=== PATIENT | male | born 1990 | race Caucasian/White ===

== ENCOUNTER 2021-07-24 17:02 | Emergency (ER) | payer SELFPAY ==
[~2021-07-24] VITALS: Ht 180.3 cm; Wt 132.0 kg
[2021-07-24 17:02] VITALS: BP 136/78
[2021-07-24] MEDS ORDERED: KETOROLAC 60 MG/2 ML VIAL. IM ONE (17:30)
[2021-07-24] MEDS ORDERED: ORPHENADRINE CITRATE 60 MG/2 ML VIAL. IM ONE (17:30)
--- NOTE | 2021-07-24 17:49 | RAD ---
XR LUMBAR SPINE 2-3V History: Reason: low back pain / Spl. Instructions: / History: Technique: 3 views lumbar spine. Comparison: None. Findings: Normal vertebral body height and alignment. No acute fracture. Mild degenerative disc changes most pr ominent L4-5 and L5-S1. Impression: 1. No acute osseous abnormality. Electronically signed by: Tejas Leal DO (07/24/2021 5:47 PM) [facility]
[2021-07-24] MEDS ORDERED: CYCL-331 PO (18:03)
--- NOTE | 2021-07-24 18:04 | PHYS DOC ---
Past History Past Medical History: No Pertinent History (JILLIAN KILPATRICK APRN) Past Surgical History: No Surgical History (JILLIAN KILPATRICK APRN) Alcohol Use: None Drug Use: None (JILLIAN KILPATRICK APRN) General Adult EDM: Chief Complaint: BACK PAIN OR INJURY HPI: HPI: Patient is a 31-year-old male who presents to the ER for low back pain. 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 It does not radiate. At rest is 2 out of 10, with movement 7 out of 10. No treatment prior to arrival. Patient denies any radiation of pain, saddle anesthesias, numbness or tingling in his extremities or loss of bowel or bladder. (JILLIAN KILPATRICK APRN) Review of Systems: Review of Systems: 14 body systems of the review of systems have been reviewed. See HPI for pertinent positive and negative responses, otherwise all other systems are negative, nonpertinent or noncontributory (JILLIAN KILPATRICK APRN) Current Medications: Current Meds: Current Medications Medications (Trade) Dose Ordered Sig/Candelario Start Time Stop Time Status Last Admin Dose Admin Ketorolac Tromethamine (Toradol Im) 60 mg 1X ONCE 07/24/21 17:30 07/24/21 17:31 DC 07/24/21 17:50 60 MG Orphenadrine Citrate (Norflex) 60 mg 1X ONCE 07/24/21 17:30 07/24/21 17:31 DC 07/24/21 17:50 60 MG (JILLIAN KILPATRICK APRN) Allergies: Allergies: Allergies Coded Allergies Type Severity Reaction Last Updated Verified No Known Drug Allergies 10/26/14 No (JILLIAN KILPATRICK APRN) Physical Exam: PE: Constitutional: Well developed, well nourished, no acute distress, non-toxic appearance. [] HENT: Normocephalic, atraumatic, bilateral external ears normal, oropharynx moist, no oral exudates, nose normal. [] Eyes: PERRLA, EOMI, conjunctiva normal, no discharge. [] Neck: Normal range of motion, no bony cervical spinal tenderness, supple, no stridor. [] Cardiovascular:Heart rate regular rhythm, no murmur [] Lungs & Thorax: Bilateral breath sounds clear to auscultation [] Abdomen: Bowel sounds normal, soft, no tenderness, no masses, no pulsatile masses. [] Skin: Warm, dry, no erythema, no rash. [] Back: No bony spinal tenderness, no CVA tenderness. [] Extremities: No tenderness, no cyanosis, no clubbing, ROM intact, no edema. [] Neurologic: Alert and oriented X 3, normal motor function, normal sensory fu nction, no focal deficits noted. [] Psychologic: Affect normal, judgement normal, mood normal. [] (JILLIAN KILPATRICK APRN) EKG: EKG: [] (JILLIAN KILPATRICK APRN) Radiology/Procedures: Radiology/Procedures: [] (JILLIAN KILPATRICK APRN) Heart Score: C/O Chest Pain: No Risk Factors: Risk Factors: DM, Current or recent (<one month) smoker, HTN, HLP, family history of CAD, obesity. Risk Scores: Score 0 - 3: 2.5% MACE over next 6 weeks - Discharge Home Score 4 - 6: 20.3% MACE over next 6 weeks - Admit for Clinical Observation Score 7 - 10: 72.7% MACE over next 6 weeks - Early Invasive Strategies (JILLIAN KILPATRICK APRN) Course & Med Decision Making: Course & Med Decision Making Pertinent Labs and Imaging studies reviewed. (See chart for details) []Patient is a 31-year-old male who presents to the ER for low back pain. 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 It does not radiate. At rest is 2 out of 10, with movement 7 out of 10. No treatment prior to arrival. Patient denies any radiation of pain, saddle anesthesias, numbness or tingling in his extremities or loss of bowel or bladder. X-ray negative for any acute findings. Patient treated in the ER with anti-inflammatory medications and muscle relaxer. Patient will be discharged home with anti- inflammatory medications and muscle relaxer. I discussed with patient all findings and diagnostic testing as well as the need to follow-up with PCP for further evaluation and treatment or return to the ER if any new or worsening symptoms. Strict return precautions were also discussed at length. Patient v oiced understanding and agreement with the plan. Patient is hemodynamically stable at the time of disposition. (JILLIAN KILPATRICK APRN) Course & Med Decision Making I was the Attending physician on the above date of service of this patient. This patient was evaluated, examined, treated, and dispositioned from the emergency department by the mid-level practitioner. Although I was working at the time , no assistance was requested. Electronically signed, Sam Alfonso DO (SAM ALFONSO DO) [place] Disclaimer: [place] Disclaimer: This electronic medical record was generated, in whole or in part, using a voice recognition dictation system. (JILLIAN KILPATRICK APRN) Departure Departure: Impression: Primary Impression: Back pain Qualified Codes: M54.5 - Low back pain Disposition: HOME / SELF CARE / HOMELESS Condition: GOOD Referrals: PCP,NO (PCP) Patient Instructions: Back Pain, Adult Additional Instructions: You were seen in the ER for low back pain. Your x-ray was negative for any acute findings. It is likely that you are experiencing a muscle spasm. You are treated with anti-inflammatory medications and muscle relaxer in the ER. Please continue to take ibuprofen or naproxen at home. You are being discharged home with a muscle relaxer. Please take this as directed. This medication may cause drowsiness so do not take when you need to be alert and do not take with alcohol. Follow-up with your primary care provider tomorrow regarding your ER visit. If you develop worsening of your back pain, inability to bear weight or ambulate, numbness or tingling in your extremities, loss of bowel or bladder or numbness or tingling in your groin please return to the ER immediately. EMERGENCY DEPARTMENT GENERAL DISCHARGE INSTRUCTIONS Thank you for coming to [facility] (ED) today and trusting us with you care. We trust that you had a positivie experience in our Emergency Department. If you wish to speak to the department management, you may call the director at [phone]. YOUR FOLLOW UP INSTRUCTIONS ARE FOLLOWS: 1. Do you have a private Doctor? If you do not have a private doctor, please ask for a resource list of physicians or clinics that may be able to assist you with follow up care. 2. The Emergency Physician has interpreted your x-rays. The X-Ray specialist will also review them. If there is a change in the findings, you will be notified in 48 hours when at all possible. 3. A lab test or culture has been done, your results will be reviewed and you will be notified if you need a change in treatment. ADDITIONAL INSTRUCTIONS AND INFORMATION: 1. Your care today has been supervised by a physician who is specially trained in emergency care. Many problems require more than one evaluation for a complete diagnosis and treatment. We recommend that you schedule your follow up appointment as recommended to ensure complete treatment of you illness or injury. If you are unable to obtain follow up care and continue to have a problem, or if your condition worsens, we recommend that you return to the ED. 2. We are not able to safely determine your condition over the phone nor are we able to give sound medical advice over the phone. For these safety reasons, if you call for medical advice we will ask you to come to the ED for further evaluation. 3. If you have any questions regarding these discharge instructions please call the ED at [phone]. SAFETY INFORMATION: In the interest of safety, wellness, and injury prevention; we encourage you to wear your sealbelt, if you smoke; quite smoking, and we encourage family to use a protective helmet for bicycling and other sporting events that present an increased risk for head injury. IF YOUR SYMPTOMS WORSEN OR NEW SYMPTOMS DEVELOP, OR YOU HAVE CONCERNS ABOUT YOUR CONDITION; OR IF YOUR CONDITION WORSENS WHILE YOU ARE WAITING FOR YOUR FOLLOW UP APPOINTMENT; EITHER CONTACT YOUR PRIMARY CARE DOCTOR, THE PHYSICIAN WHOSE NAME AND NUMBER YOU WERE GIVEN, OR RETURN TO THE ED IMMEDIATELY. Scripts Cyclobenzaprine Hcl (CYCLOBENZAPRINE HCL) 10 Mg Tablet 1 TAB PO TID PRN PRN for PAIN for 3 Days, #9 TAB 0 Refills Prov: JILLIAN KILPATRICK APRN 07/24/21 JILLIAN KILPATRICK APRN Jul 24, 2021 18:04 SAM ALFONSO DO Jul 25, 2021 06:56
== END 2021-07-24 18:47 | disposition home or self-care (01) ==
LOC: ER 17:02
DX: M54.5 Low back pain (principal)
CPT/HCPCS: 72100; 96372; 99284; J1885; J2360